=== PATIENT | female | born 1935 | race Caucasian/White ===

== ENCOUNTER 2017-09-24 15:46 | Inpatient (IN) | payer MEDICARE ==
[~2017-09-24] VITALS: Ht 177.8 cm; Wt 77.6 kg
[2017-09-24] MEDS ORDERED: IV NS 0.9% 1,000 ML BAG IV ONE ×2 (16:30→19:30)
[2017-09-24] MEDS ORDERED: VANCOMYCIN 1 GM in IV D5W 250 ML IV ONE (16:30)
[2017-09-24] MEDS ORDERED: PIPERACILLIN /TAZOBACTAM 3.375 G in IV D5W 50 ML IV ONE (16:30)
--- NOTE | 2017-09-24 16:34 | NUR ---
PT BIBRA FROM [facility] FOR AMS. NOTED TACHY, FEBRILE. NOTED DD ON LEFT LEG OPEN WOUND. MD AT FOR EVAL. IV ACCESS SMELLER. PACER PADS PLACED PER MD ORDER. SAFETY AND COMFORT MEASURES PROVIDED. WILL MONITOR.
[2017-09-24 16:46] LABS: EOSINOPHILS % (AUTO) 0.1 % (0.0-6.0); HEMATOCRIT 32 % (33-45); HEMOGLOBIN 10.9 g/dL (11.5-14.8); LYMPHOCYTES # (AUTO) 0.3 /CMM (0.8-4.8); LYMPHOCYTES % (AUTO) 3.3 % (20.0-44.0); MEAN CORPUSCULAR HEMOGLOBIN 29 PG (26.0-33.0); MEAN CORPUSCULAR HGB CONC 34 g/dl (31.0-36.0); MEAN CORPUSCULAR VOLUME 85 fL (82-100); MONOCYTES # (AUTO) 0.2 /CMM (0.1-1.30); MONOCYTES % (AUTO) 1.7 % (2.0-12.0); NEUTROPHILS # (AUTO) 9.4 /CMM (1.8-8.9); NEUTROPHILS % (AUTO) 94.9 % (43.0-81.0); PLATELET COUNT (AUTO) 66 /CMM (150-450); RDW COEFFICIENT OF VARIATION 16.7 (11.5-15.0); RED BLOOD CELL COUNT(AUTO) 3.76 MIL/uL (4.0-5.2); WHITE BLOOD COUNT (AUTO) 9.9 K/uL (4.3-11.0)
[2017-09-24] MEDS ORDERED: NITR100C6 PO (16:47)
[2017-09-24] MEDS ORDERED: CRANBERRY 1680 MG PO (16:47)
[2017-09-24] MEDS ORDERED: WARF1TAB47 PO (16:47)
[2017-09-24 17:00] LABS: TROPONIN I 0.361 ng/mL (0.00-0.056)
--- NOTE | 2017-09-24 17:00 | NUR ---
SECOND IV ACCESS STARED. BLOOD DRAWN FOR LABS. MEDICATED ORDERED.
[2017-09-24] MEDS ORDERED: MAGN400O6 PO (17:03)
[2017-09-24] MEDS ORDERED: ACET325T53 PO (17:03)
[2017-09-24] MEDS ORDERED: TRAM50TA2 PO ×2 (17:03)
[2017-09-24] MEDS ORDERED: FURO-144 PO (17:03)
[2017-09-24] MEDS ORDERED: NA P133E RC (17:03)
[2017-09-24] MEDS ORDERED: FAMO-131 PO (17:03)
[2017-09-24] MEDS ORDERED: ZINC220C6 PO (17:03)
[2017-09-24] MEDS ORDERED: BISA10SU61 RC (17:03)
[2017-09-24] MEDS ORDERED: MULT-213 PO (17:03)
[2017-09-24] MEDS ORDERED: ASCO500T9 PO (17:03)
[2017-09-24] MEDS ORDERED: HYDR-552 PO ×2 (17:03)
[2017-09-24 17:04] LABS: ALANINE AMINOTRANSFERASE 20 U/L (12-78); ALKALINE PHOSPHATASE 73 U/L (46-116); ASPARTATE AMINOTRANSFERASE 29 U/L (15-37); BILIRUBIN,DIRECT 1.3 mg/dL (0.0-0.2); BILIRUBIN,TOTAL 2.1 mg/dL (0.2-1.0); CALCIUM, SERUM 7.9 mg/dL (8.5-10.1); CARBON DIOXIDE 20 mmol/L (21-32); CHLORIDE 104 mmol/L (98-107); CREATININE 2.2 mg/dL (0.6-1.3); GLUCOSE 94 mg/dL (74-106); POTASSIUM 5.4 mmol/L (3.5-5.1); SODIUM SERUM 137 mmol/L (136-145); TOTAL PROTEIN, SERUM 4.9 g/dL (6.4-8.2); UREA NITROGEN, BLOOD 79 mg/dL (7-18)
[2017-09-24] MEDS ORDERED: AMIN30LI2 PO (17:11)
[2017-09-24 17:17] LABS: ALBUMIN 1.3 g/dL (3.4-5.0)
[2017-09-24 17:18] LABS: INR 4.23 (0.87-1.13)
[2017-09-24] MEDS ORDERED: DIGOXIN INJ 0.5 MG/2 ML AMPUL ONE (17:27)
[2017-09-24] MEDS ORDERED: DIGOXIN INJ 0.5 MG/2 ML AMPUL IV ONE (17:30)
[2017-09-24 17:31] LABS: APPEARANCE,URINE CLOUDY (CLEAR); BILIRUBIN,URINE NEGATIVE (NEGATIVE); BLOOD, URINE 3+ Ery/uL (NEGATIVE); COLOR,URINE YELLOW (YELLOW); KETONES,URINE NEGATIVE (NEGATIVE); LEUKOCYTE ESTERASE ,URINE 3+ (NEGATIVE); NITRITE, URINE NEGATIVE (NEGATIVE); PH,URINE 6.5 (5.0-8.0); PROTEIN,URINE 2+ mg/dl (NEGATIVE); UGLUCOSE NEGATIVE (NEGATIVE); UROBILINOGEN,URINE 0.2 EU/dL (0.2)
--- NOTE | 2017-09-24 17:40 | NUR ---
URINE SAMPLE OBTAINED, SENT.
[2017-09-24 17:42] LABS: BACTERIA,URINE Many /HPF (None Seen); SQUAMOUS EPITHELIAL CELL,UR Few /HPF (None Seen)
--- NOTE | 2017-09-24 18:20 | NUR ---
POCKET OPERATOR AT FOR LACTIC DRAW.
--- NOTE | 2017-09-24 19:06 | NUR ---
RECEIVED REPORT FROM VANE BLANCHARD.
--- NOTE | 2017-09-24 19:19 | NUR ---
INFORMED DR. SHEPHERD PT CURRENT BP, VERBAL ORDERS TO GIVE PT IV 1 L NS BOLUS AT THIS TIME.
--- NOTE | 2017-09-24 19:33 | NUR ---
PT BP 69/[address] SHEPHERD MADE AWARE.
--- NOTE | 2017-09-24 19:55 | NUR ---
CALLED RT FOR INTUBATION
--- NOTE | 2017-09-24 19:57 | NUR ---
CALLED FOR ICU BED
[2017-09-24] MEDS ORDERED: FENTANYL CITRATE IV 1,250 MCG in IV NS 0.9% 225 ML IV STA (19:59)
[2017-09-24] MEDS ORDERED: KETAMINE HCL (500MG/10ML) 50 MG/ML VIAL IV ONE (20:00)
[2017-09-24] MEDS ORDERED: SUCCINYLCHOLINE CHLORIDE 20 MG/ML VIAL IV ONE (20:00)
[2017-09-24] MEDS ORDERED: KETAMINE HCL (500MG/10ML) 50 MG/ML VIAL ONE (20:03)
--- NOTE | 2017-09-24 20:08 | NUR ---
ICU 253 NURSE ALEXANDRE
--- NOTE | 2017-09-24 20:15 | NUR ---
PATIENT RECEIVED ON NASAL CANNULA @ 4LPM. PATIENT ALTERED. PATIENT ORALLY INTUBATED WITH 7.5 @ 23CM LIP LINE VIA ET TUBE PER MD REQUEST. B/S CLEAR BILATERALLY. VENT PLUGGED INTO RED OUTLET. ALARMS ON AND AUDIBLE. AMBU BAG BEDSIDE. WILL CONTINUE TO MONITOR. Addendum: 09/24/17 at 2121 by HUYEN MONTIEL RT Amended: Links added.
--- NOTE | 2017-09-24 20:15 | NUR ---
DR SHEPHERD AND RT AT BEDSIDE FOR INTUBATION.
--- NOTE | 2017-09-24 20:17 | NUR ---
PT INTUBATED 23 AT [facility], ET TUBE 7.5 PT PLACED ON PRESCRIBED VENT SETTINGS: AC 16 TV 500 PEEP 5 FI02 30%
--- NOTE | 2017-09-24 20:19 | NUR ---
PER DR. SHEPHERD PT SHOCKED AT 150J PT AFIB 135
[2017-09-24] MEDS ORDERED: ETOMIDATE 2 MG/ML VIAL IV ONE (20:30)
[2017-09-24 20:40] LABS: ABG PCO2 35.3 mmHg (35.0-45.0); ABG PH 7.347 (7.350-7.450); AaDO2 170.7 mmHg; COHb 0.3 % (0.5-1.5); MetHb 1.1 % (0.0-1.5); O2Hb 97.6 % (94.0-97.0); PEEP,BG 5 cm H2O; SITE, ABG Right Radial; VENT MODE, BG AC 100%; VT, ABG 500 mL
--- NOTE | 2017-09-24 20:40 | NUR ---
F/C 16 FR PLACED PER MD ORDER.
--- NOTE | 2017-09-24 20:42 | NUR ---
OGT PLACED PER MD ORDER 65CM AT THE LIP.
--- NOTE | 2017-09-24 20:45 | NUR ---
RADIOLOGY AT BEDSIDE FOR CXR
--- NOTE | 2017-09-24 20:48 | NUR ---
DR. SHEPHERD AT BEDSIDE FOR CENTRAL LINE PLACEMENT
--- NOTE | 2017-09-24 20:55 | NUR ---
PT NOT READY FOR CT SCAN, BEING WORKED ON. ER WILL CALL.
[2017-09-24] MEDS ORDERED: FENTANYL PF 100MCG/2ML AMPUL ONE (20:58)
--- NOTE | 2017-09-24 21:03 | NUR ---
called pharmacy for levophed
--- NOTE | 2017-09-24 21:03 | NUR ---
VERBAL ORDERS PER MD IVP 50MCG FENTNYL ONE TIME NOW. PT MEDICATED.
[2017-09-24 21:12] VITALS: BP 105/72
--- NOTE | 2017-09-24 21:15 | NUR ---
PER JOAO PLACED RIGHT IJ CENTRAL LINE TRIPLE LUMEN
--- NOTE | 2017-09-24 21:23 | NUR ---
LEVOPHED GIVEN PER MD ORDER, RECEIVED DOUBLE CONCENTRATION BAG FROM PHARM. VERIFIED BY 2ND RN TRICE
[2017-09-24] MEDS ORDERED: NOREPINEPHRINE 8 MG in IV D5W 500 ML IV PRN ×4 (21:30)
[2017-09-24] MEDS ORDERED: FENTANYL PF 100MCG/2ML AMPUL IV ONE (21:30)
--- NOTE | 2017-09-24 21:47 | NUR ---
RADIOLOGY AT BEDSIDE FOR CXR
--- NOTE | 2017-09-24 21:47 | NUR ---
ATTEMPTED TO CALL [facility] AT REGARDING ADMISSION. NO ANSWER, I LEFT VOICEMAIL WITH CALL BACK NUMBER
--- NOTE | 2017-09-24 21:55 | NUR ---
REPORT GIVEN TO VANE SCHROEDER FOR ICU FOR 253
--- NOTE | 2017-09-24 22:50 | NUR ---
PT TRANSFERRED PER ACLS PROTOCOL.
[2017-09-24 23:00] VITALS: BP 98/51
[2017-09-24 23:11] VITALS: BP 103/38
[2017-09-24 23:15] VITALS: BP 98/51
[2017-09-24] MEDS ORDERED: PIPERACILLIN /TAZOBACTAM 3.375 G in IV D5W 100 ML IV ONE (23:45)
--- NOTE | 2017-09-24 23:55 | NUR ---
SLIDE FORMING MACHINE OPERATOR NOTES Received patient from ER who presented from SNF due to AMS and elevated HR. Admitting Dx Sepsis,possible UTI,AFIB with RVR. Hx of HTN,leg wounds, DVT.Intubated in ER on AC mode,lethargic,+ cough and gag,slightly moves extremities but weak,(on bilateral soft wrist restraints to prevent self extubation).On Fentanyl drip started in ER ,will slowly wean it down and start on Propofol drip.TLC right IJ also on Levophed drip for BP support. OGT clamped @ 64cm marking.Has multiple leg wounds(refer to skin flowsheet).Comfort care done,needs attended.
[2017-09-25] VITALS (90 sets, daily range): BP systolic 86–146; BP diastolic 47–107
[2017-09-25] MEDS ORDERED: IPRATROPIUM NEB FS 0.5 MG/2.5 ML AMPUL.NEB NEB PRN
[2017-09-25] MEDS ORDERED: LEVALBUTEROL HCL NEB 1.25 MG/0.5 ML VIAL.NEB NEB PRN
[2017-09-25] MEDS ORDERED: ACETAMINOPHEN 650 MG/SUPP.RECT RC PRN
[2017-09-25] MEDS: IV NS 0.9% 1,000 ML IV PRN ×3 (00:01→13:26)
[2017-09-25] MEDS ORDERED: PIPERACILLIN /TAZOBACTAM 3.375 G VIAL IV ONE ×2 (00:14→05:13)
[2017-09-25] MEDS: PANTOPRAZOLE 40 MG VIAL IV SCH ×2 (00:16→23:40)
[2017-09-25] MEDS: PROPOFOL 100 ML IV PRN ×5 (00:29→23:40)
--- NOTE | 2017-09-25 00:45 | NUR ---
PVC MONITOR NOTES Noted hR increasing on and off to 150's-160's then converts down to low 100's. 0115 HR up to 150's again ,this time sustaining . 0120 HR still in the 150's,placed a call to 's service to refer HR.will closely monitor patient .
--- NOTE | 2017-09-25 02:15 | NUR ---
CREDIT VERIFICATION CLERK NOTES 0215 called back,referred about the HR earlier,ordered to give another NSS iv bolus 1 liter.and if HR still high may start patient on Metoprolol 25 mg BID via NGT,but try IV bolus first.
[2017-09-25] MEDS ORDERED: IV NS 0.9% 1,000 ML IV ONE (02:30)
--- NOTE | 2017-09-25 03:00 | NUR ---
WEB DEVELOPMENT INTERN NOTES Heart rate in the low 100's ,still occasionally goes up to 150's but non sustaining. Patient seems to be waking up more,will titrate Diprivan as needed.
[2017-09-25] MEDS ORDERED: PIPERACILLIN /TAZOBACTAM 3.375 G in IV D5W 100 ML IV SCH (05:00)
--- NOTE | 2017-09-25 05:00 | NUR ---
CONTROL PANEL TESTER NOTES Am care done,BM x1 foul smelly.
[2017-09-25 05:26] LABS: EOSINOPHILS % (AUTO) 0.1 % (0.0-6.0); HEMATOCRIT 31 % (33-45); HEMOGLOBIN 10.3 g/dL (11.5-14.8); LYMPHOCYTES # (AUTO) 0.6 /CMM (0.8-4.8); LYMPHOCYTES % (AUTO) 5.3 % (20.0-44.0); MEAN CORPUSCULAR HEMOGLOBIN 30 PG (26.0-33.0); MEAN CORPUSCULAR HGB CONC 34 g/dl (31.0-36.0); MEAN CORPUSCULAR VOLUME 89 fL (82-100); MONOCYTES # (AUTO) 0.2 /CMM (0.1-1.30); MONOCYTES % (AUTO) 1.7 % (2.0-12.0); NEUTROPHILS # (AUTO) 10.8 /CMM (1.8-8.9); NEUTROPHILS % (AUTO) 92.9 % (43.0-81.0); RDW COEFFICIENT OF VARIATION 17.9 (11.5-15.0); RED BLOOD CELL COUNT(AUTO) 3.44 MIL/uL (4.0-5.2); WHITE BLOOD COUNT (AUTO) 11.6 K/uL (4.3-11.0)
[2017-09-25 05:48] LABS: INR 4.95 (0.87-1.13)
[2017-09-25 05:49] LABS: PLATELET COUNT (AUTO) 43 /CMM (150-450)
[2017-09-25 05:50] LABS: ALANINE AMINOTRANSFERASE 23 U/L (12-78); ALKALINE PHOSPHATASE 72 U/L (46-116); ASPARTATE AMINOTRANSFERASE 45 U/L (15-37); BILIRUBIN,TOTAL 3.5 mg/dL (0.2-1.0); CALCIUM, SERUM 7.6 mg/dL (8.5-10.1); CARBON DIOXIDE 18 mmol/L (21-32); CHLORIDE 105 mmol/L (98-107); CREATININE 1.7 mg/dL (0.6-1.3); GLUCOSE 144 mg/dL (74-106); POTASSIUM 4.7 mmol/L (3.5-5.1); SODIUM SERUM 137 mmol/L (136-145); TOTAL PROTEIN, SERUM 4.9 g/dL (6.4-8.2); UREA NITROGEN, BLOOD 69 mg/dL (7-18)
[2017-09-25 05:58] LABS: BAND % (MANUAL) 3 % (0.0-5.0); NEUTROPHILS % (MANUAL) 92 (42-76)
[2017-09-25 05:59] LABS: LYMPHOCYTES % (MANUAL) 3 % (16-48); MONOCYTES % (MANUAL) 2 % (0-11.0)
[2017-09-25 06:02] LABS: ALBUMIN 1.4 g/dL (3.4-5.0)
--- NOTE | 2017-09-25 06:30 | NUR ---
PROPAGATOR LABORER NOTES platelet=43,INR=4.95,Lactic acid=2.3,Albumin=1.4 ,relayed results to Dr. Levy via text mesage.No S/S of any bleeding.Also wound consult ordered.
[2017-09-25] MEDS ORDERED: ALBUTEROL FS 2.5 MG/0.5 ML VIAL.NEB NEB PRN (07:35)
--- NOTE | 2017-09-25 08:00 | NUR ---
ICU/RN INITIAL NOTES,AM RECEIVED REPORT FROM NIGHT NURSE. PT SEDATED ON DIPRIVAN. PT INTUBATED ETT 7.5, 24CM AT THE LIP, ON VENT SETTINGS ORDERED BY MD, PT AGITATED, BITING DOWN ON VENT, TACHYPNEIC. PER MD WILL INCREASE SEDATION PER PROTOCOL. RIGHT IJ TLC, LEVO INFUSING FOR BP SUPPORT, IV FLUIDS INFUSING 100 ML/HR. OG TUBE IN PLACE, PLACEMENT VERIFIED. PT ON TELE, UNCONTROLLED A.FIB. WITH RECURRENT EPISODES OF HR INCREASING TO 150'S, NOT SUSTAINED. BILATERAL SOFT WRIST RESTRAINTS IN PLACE, WILL ASSESS PER PROTOCOL. WOUNDS NOTED, WOUND CONSULT IN PLACE. ALL NEEDS WILL BE ATTENDED TO, SAFETY MEASURES TAKEN ,BED IN LOW POSITION, SIDE RIALS UP, CALL LIGHT WITHIN REACH, WILL CONTINUE CARE.
[2017-09-25 08:10] LABS: ABG BASE EXCESS -5.5 mmol/L; ABG OXYGEN SATURATION 96.5 % (92.0-98.5); ABG PCO2 30.9 mmHg (35.0-45.0); ABG PH 7.394 (7.350-7.450); ABG PO2 93.9 mmHg (75.0-100.0); AaDO2 83.7 mmHg; COHb 0.3 % (0.5-1.5); MetHb 0.7 % (0.0-1.5); O2Hb 95.5 % (94.0-97.0); PEEP,BG 5 cm H2O; SITE, ABG Right Radial; VENT MODE, BG AC 16 450 30% +5; VT, ABG 450 mL
[2017-09-25] MEDS: NOREPINEPHRINE 8 MG in IV D5W 500 ML IV PRN ×2 (08:45→21:43)
--- NOTE | 2017-09-25 09:10 | NUR ---
ICU/RN: ROUNDS DR. PANTOJA AT BEDSIDE. PT ASSESSED, INFORMED HIM OF UNCONTROLLED A.FIB AND CRITICAL PLATELET COUNT. ALSO INFORMED HIM PT INR IS 4.9. RECEIVED NEW ORDERS. WILL FOLLOW THROUGH
[2017-09-25] MEDS ORDERED: PHYTONADIONE INJ 10 MG/1 ML AMPUL SQ ONE (09:30)
[2017-09-25] MEDS: DIGOXIN INJ 0.5 MG/2 ML AMPUL IV SCH (10:19)
[2017-09-25] MEDS ORDERED: FEE PK DOSING 1 MIN EA MC ONE (10:27)
[2017-09-25] MEDS ORDERED: ETOMIDATE 2 MG/ML VIAL IV ONE (11:42)
[2017-09-25] MEDS ORDERED: SUCCINYLCHOLINE CHLORIDE 20 MG/ML VIAL IV ONE (11:42)
[2017-09-25] MEDS: PIPERACILLIN /TAZOBACTAM 3.375 G in IV NS 0.9% 50 ML IV SCH ×3 (12:34→23:40)
--- NOTE | 2017-09-25 12:40 | NUR ---
ICU/RN: POSITIVE DVT WITHIN THE LEFT LOWER EXTREMITY EXTENDING FROM THE LEFT COMMON FEMORAL VEIN THROUGH THE LEFT POPLITEAL VEIN. RECEIVED REPORT FROM . WILL CALL AND INFORM HIM OF NEW FINDINGS.
--- NOTE | 2017-09-25 13:15 | NUR ---
ICU/RN: INFORMED , NO NEW ORDERS FOR DVT SINCE INR IS 4.9, WILL FOLLOW UP
--- NOTE | 2017-09-25 16:30 | NUR ---
ICU/RN: TLO ORDERS RECEIVED FOR PROCEDURE CONSENT FOR IVC FILTER PLACEMENT TOMORROW 09/26/17. PT WILL CONTINUE TO BE NPO POST MIDNIGHT. PT HAS NO FAMILY, 2 PHYSICIANS WILL SIGN PROCEDURE CONSENT. WILL FOLLOW UP WITH IN THE AM.
[2017-09-25] MEDS: VANCOMYCIN 0.75 GM in IV D5W 250 ML IV SCH (18:15)
--- NOTE | 2017-09-25 18:42 | NUR ---
ICU/RN ENDING NOTES,AM REPORT WILL BE ENDORSED TO NIGHT NURSE FOR CONTINUATION OF CARE. PT INTUBATED, ON VENT SETTINGS ORDERED BY MD. NO ACUTE DISTRESS NOTED AT THIS TIME. PT SEDATED ON 50 MCG.KG/MIN OF DIPRIVAN. IV FLUIDS AND LEVO INFUSING FOR BP SUPPORT. PT UNCONTROLLED A.FIB ON TELE, WITH PERIODS OF RVR. PT BATHE, LINENS CHANGED, TURNED AND REPOSITIONED. CONSENT IN CHART FOR IVC FILTER PLACEMENT TOMORROW. AND AWARE OF RECTAL BLEEDING, WILL RECHECK H/H. ALL NEEDS ATTENDED TO, SAFETY MEASURES TAKEN, BED IN LOW POSITION, SIDE RAILS UP, CALL LIGHT WITHIN REACH. WILL CONTINUE CARE.
--- NOTE | 2017-09-25 19:35 | NUR ---
O AND M SUPERVISOR RCD PT SEDATED ON DIPRIVAN AT 50 MCG/KG/MIN WELL BILATERAL SOFT WRIST RESTRAINTS PT EASILY WAKES UP WHEN TITRATING DIPRIVAN. UNCONTROLLED AFIB ON MONITOR. ON LEVOPHED AT 14 MCG/MIN FOR BP SUPPORT. INTUBATED 7.5@ 24 W/VENT SETTINGS AC 16 450 30%; SUCTIONED LARGE BROWN SPUTUM; PROVIDED ORAL CARE; REPOSITIONED PT. MARTINEZ CATHETER DRAINING LARGE AMOUNT OF DARK YELLOW URINE. OG TUBE CLAMPED. RIJ TLC PATENT AND FLUSHING WELL. PENDING IVC FILTER PLACEMENT FOR TOMORROW. CONTINUE TO MONITOR.
[2017-09-25 20:47] LABS: EOSINOPHILS % (AUTO) 0.1 % (0.0-6.0); HEMATOCRIT 30 % (33-45); HEMOGLOBIN 10.5 g/dL (11.5-14.8); LYMPHOCYTES # (AUTO) 0.6 /CMM (0.8-4.8); LYMPHOCYTES % (AUTO) 5.9 % (20.0-44.0); MEAN CORPUSCULAR HEMOGLOBIN 32 PG (26.0-33.0); MEAN CORPUSCULAR HGB CONC 35 g/dl (31.0-36.0); MEAN CORPUSCULAR VOLUME 93 fL (82-100); MONOCYTES # (AUTO) 0.1 /CMM (0.1-1.30); MONOCYTES % (AUTO) 0.7 % (2.0-12.0); NEUTROPHILS # (AUTO) 9.7 /CMM (1.8-8.9); NEUTROPHILS % (AUTO) 93.3 % (43.0-81.0); RDW COEFFICIENT OF VARIATION 17.8 (11.5-15.0); RED BLOOD CELL COUNT(AUTO) 3.26 MIL/uL (4.0-5.2); WHITE BLOOD COUNT (AUTO) 10.4 K/uL (4.3-11.0)
[2017-09-25 20:49] LABS: PLATELET COUNT (AUTO) 29 /CMM (150-450)
[2017-09-25 21:22] LABS: BAND % (MANUAL) 24 % (0.0-5.0); LYMPHOCYTES % (MANUAL) 8 % (16-48); MONOCYTES % (MANUAL) 3 % (0-11.0); NEUTROPHILS % (MANUAL) 65 (42-76)
--- NOTE | 2017-09-25 21:49 | NUR ---
PT RECEIVED INTUBATED WITH 7.5 ETT SECURED AT 24CM AT THE LIP ON 840 VENT. NO RESP DISTRESS NOTED. PT TOLERATING VENT SETTINGS. SX'D FOR SML AMT OF THIN WHITE SECRETIONS. VENT ALARMS SET AND AUDIBLE. AMBU BAG AT BEDSIDE. VENT PLUGGED INTO RED OUTLET. WILL CONTINUE TO MONITOR. Addendum: 09/25/17 at 2150 by RC BETANCOURT RT Amended: Links added.
[2017-09-26] VITALS (90 sets, daily range): BP systolic 80–128; BP diastolic 45–73
[2017-09-26] MEDS: PROPOFOL 100 ML IV PRN ×4 (02:40→22:20)
[2017-09-26 04:58] LABS: INR 1.1 (0.87-1.13)
[2017-09-26] MEDS: PIPERACILLIN /TAZOBACTAM 3.375 G in IV NS 0.9% 50 ML IV SCH (05:01)
[2017-09-26] MEDS: IV NS 0.9% 1,000 ML IV PRN ×2 (05:01→18:37)
[2017-09-26 05:07] LABS: EOSINOPHILS % (AUTO) 0.2 % (0.0-6.0); HEMATOCRIT 29 % (33-45); HEMOGLOBIN 10.2 g/dL (11.5-14.8); LYMPHOCYTES # (AUTO) 0.4 /CMM (0.8-4.8); LYMPHOCYTES % (AUTO) 4.3 % (20.0-44.0); MEAN CORPUSCULAR HEMOGLOBIN 32 PG (26.0-33.0); MEAN CORPUSCULAR HGB CONC 35 g/dl (31.0-36.0); MEAN CORPUSCULAR VOLUME 91 fL (82-100); MONOCYTES # (AUTO) 0.1 /CMM (0.1-1.30); MONOCYTES % (AUTO) 1.2 % (2.0-12.0); NEUTROPHILS # (AUTO) 9.5 /CMM (1.8-8.9); NEUTROPHILS % (AUTO) 94.3 % (43.0-81.0); RDW COEFFICIENT OF VARIATION 17.8 (11.5-15.0); RED BLOOD CELL COUNT(AUTO) 3.23 MIL/uL (4.0-5.2); WHITE BLOOD COUNT (AUTO) 10.1 K/uL (4.3-11.0)
[2017-09-26 05:12] LABS: ALANINE AMINOTRANSFERASE 18 U/L (12-78); ALKALINE PHOSPHATASE 70 U/L (46-116); ASPARTATE AMINOTRANSFERASE 33 U/L (15-37); BILIRUBIN,TOTAL 3.7 mg/dL (0.2-1.0); CALCIUM, SERUM 7.8 mg/dL (8.5-10.1); CARBON DIOXIDE 20 mmol/L (21-32); CHLORIDE 107 mmol/L (98-107); CREATININE 1.3 mg/dL (0.6-1.3); GLUCOSE 162 mg/dL (74-106); POTASSIUM 4.1 mmol/L (3.5-5.1); SODIUM SERUM 140 mmol/L (136-145); TOTAL PROTEIN, SERUM 4.7 g/dL (6.4-8.2); UREA NITROGEN, BLOOD 61 mg/dL (7-18)
[2017-09-26 05:34] LABS: ALBUMIN 1.1 g/dL (3.4-5.0)
[2017-09-26 05:44] LABS: PLATELET COUNT (AUTO) 28 /CMM (150-450)
[2017-09-26 05:46] LABS: LYMPHOCYTES % (MANUAL) 2 % (16-48); MONOCYTES % (MANUAL) 1 % (0-11.0); NEUTROPHILS % (MANUAL) 97 (42-76)
--- NOTE | 2017-09-26 07:18 | NUR ---
ICU/RN INITIAL NOTES,AM RECEIVED REPORT FROM NIGHT NURSE. PT SEDATED ON DIPRIVAN. PT INTUBATED ETT 7.5, 24CM AT THE LIP, ON VENT SETTINGS ORDERED BY MD, PT AGITATED, BITING DOWN ON VENT, TACHYPNEIC. PER MD WILL INCREASE SEDATION PER PROTOCOL.RIGHT IJ TLC, LEVO INFUSING FOR BP SUPPORT, IV FLUIDS INFUSING 100 ML/HR. OG TUBE IN PLACE, PLACEMENT VERIFIED. PT ON TELE, UNCONTROLLED A.FIB. WITH RECURRENT EPISODES OF HR INCREASING TO 150'S, NOT SUSTAINED. BILATERAL SOFT WRIST RESTRAINTS IN PLACE, WILL ASSESS PER PROTOCOL. WOUNDS NOTED, WOUND CONSULT IN PLACE. ALL NEEDS WILL BE ATTENDED TO, SAFETY MEASURES TAKEN ,BED IN LOW POSITION, SIDE RIALS UP, CALL LIGHT WITHIN REACH, WILL CONTINUE CARE.
--- NOTE | 2017-09-26 07:19 | NUR ---
ICU/RN INITIAL NOTES,AM (REVISED, DISREGARD PERVIOUS INITIAL NOTED ) RECEIVED REPORT FROM NIGHT NURSE. PT SEDATED ON DIPRIVAN. PT INTUBATED ETT 7.5, 24CM AT THE LIP, ON VENT SETTINGS ORDERED. PT SEDATED ON DIPRIVAN, 50 MCG/KG/MIN RIGHT IJ TLC, LEVO INFUSING FOR BP SUPPORT, IV FLUIDS INFUSING 100 ML/HR. OG TUBE IN PLACE, PLACEMENT VERIFIED. PT ON TELE, UNCONTROLLED A.FIB. BILATERAL SOFT WRIST RESTRAINTS IN PLACE, WILL ASSESS PER PROTOCOL. WOUNDS NOTED, SKIN/WOUND CARE ORDERED. PT SCHEDULED FOR IVC FILTER PLACEMENT TODAY. MARTINEZ IN PLACE, DRAINING JEAN CLAUDE URINE. ALL NEEDS WILL BE ATTENDED TO, SAFETY MEASURES TAKEN ,BED IN LOW POSITION, SIDE RIALS UP, CALL LIGHT WITHIN REACH, WILL CONTINUE CARE.
--- NOTE | 2017-09-26 07:36 | NUR ---
WOUND CARE CONSULT WOUND CARE RECEIVED CONSULT FOR MULTIPLE WOUND/LEFT LOWER LEG LARGE FULL THICKNESS WOUND. WOUND CARE WILL DEFER CONSULT AND ALL TREATMENT PLANS TO SURGICAL TEAM WHO ARE CURRENTLY FOLLOWING. PATIENT WITH HANNAH AT 10, ALL PRESSURE ULCER PREVENTION MEASURES NOTED TO BE IN PLACE AT THIS TIME.
[2017-09-26 07:43] LABS: ABG BASE EXCESS -4.7 mmol/L; ABG OXYGEN SATURATION 99.2 % (92.0-98.5); ABG PCO2 29.3 mmHg (35.0-45.0); ABG PH 7.424 (7.350-7.450); AaDO2 59.5 mmHg; COHb 3.2 % (0.5-1.5); MetHb 0.1 % (0.0-1.5); O2Hb 95.9 % (94.0-97.0); PEEP,BG 0 cm H2O; SITE, ABG Right Radial; VENT MODE, BG AC 16 450 30% +0; VT, ABG 450 mL
[2017-09-26] MEDS ORDERED: Z GUARD REMEDY 2 OZ OINT TP PRN (08:00)
[2017-09-26] MEDS: DIGOXIN INJ 0.5 MG/2 ML AMPUL IV SCH (09:05)
[2017-09-26] MEDS: NOREPINEPHRINE 8 MG in IV D5W 500 ML IV PRN ×2 (09:06→18:36)
[2017-09-26] MEDS: Z GUARD REMEDY 2 OZ OINT TP SCH (09:06)
[2017-09-26] MEDS ORDERED: MEROPENEM 1 G in IV NS 0.9% 100 ML IV SCH (11:00)
[2017-09-26] MEDS: DAKINS HALF STRENGTH (0.25%) 480 ML BOTTLE TOP SCH (11:56)
[2017-09-26] MEDS: MEROPENEM 1 G in IV NS 0.9% 100 ML IV SCH (12:09)
--- NOTE | 2017-09-26 12:30 | NUR ---
Social service consult requested by Dr. Levy regarding if pt. has DPOA or no. patient services manager Oren contacted Janett Glass and was informed by Juan that pt. has a friend Dereje as her primary contact . contacted Dereje to inquire if pt. has a DPOA. According to Dereje, pt. does not have a DPOA. Pt. has a lot of friends she has had for the past 30 years. Pt's mom when she was young and her sister and father are as well.
[2017-09-26] MEDS ORDERED: LEVOFLOXACIN 500 MG /D5W 100ML 500 MG in PREMIX 1 EA IV SCH ×2 (13:00→20:00)
--- NOTE | 2017-09-26 15:55 | NUR ---
ICU/RN: PLATELET PHERESIS STARTED. CONSENT IN CHART. NO S/S OF ADVERSE REACTIONS NOTED. WILL CONTINUE TO CLOSELY MONITOR.
[2017-09-26] MEDS ORDERED: LIDOCAINE 1% INJ 50 ML MDV IJ ONE (16:55)
[2017-09-26] MEDS ORDERED: HEPARIN SODIUM, PORCINE 1,000 UNIT/ML VIAL ONE (16:55)
[2017-09-26] MEDS ORDERED: IOHEXOL 50 ML IV ONE (16:55)
--- NOTE | 2017-09-26 17:10 | NUR ---
ICU/RN: SECOND PLATELET STARTED AT 1700, OR TEAM PICKED UP PT. TOLERATING WELL, NO S/S OF ADVERSE REACTIONS. PT TAKEN TO OR FOR IVC FILTER PLACEMENT.
[2017-09-26] MEDS ORDERED: FENTANYL PF 100MCG/2ML AMPUL ONE (17:17)
[2017-09-26] MEDS ORDERED: ROCURONIUM BROMIDE 50 MG/5 ML ONE (17:19)
--- NOTE | 2017-09-26 18:01 | NUR ---
ICU/RN: PT BROUGHT BACK TO ROOM FROM OR. IVC PLACEMENT DONE. PT VSS. CONTINUES TO BE ON 10 MCG/KG/MIN LEVO FOR BP SUPPORT, DIPRIVAN INFUSING FOR SEDATION, AND IV FLUIDS ORDERED. SITE CHECKED, NO S/S OF BLEEDING NOTED. WILL CONTINUE TO MONITOR. SECOND PLATELET INFUSED. WILL CONTINUE TO MONITOR.
[2017-09-26] MEDS: VANCOMYCIN 0.75 GM in IV D5W 250 ML IV SCH (18:35)
--- NOTE | 2017-09-26 19:00 | NUR ---
LUMBER STACKER OPERATOR NOTES Received orally intubated,on AC mode.Sedated on Diprivan Dorita of =3 ,responds to pain,+ gag and cough,slightly moves arms,maintained on bilateral soft wrist restraints( to prevent self extubation). TLC @ RIJ ,on Levophed drip for BP support.Comfort care done.Maintained on supine position for now (s/p IVC filter,right groin approach).Will closely monitor for bleeding at site( right groin).
--- NOTE | 2017-09-26 19:25 | NUR ---
ICU/RN ENDING NOTES,AM REPORT ENDORSED TO NIGHT NURSE FOR CONTINUATION OF CARE. PT INTUBATED, ON VENT SETTINGS ORDERED BY MD. NO ACUTE DISTRESS NOTED AT THIS TIME. PT SEDATED ON 20 MCG.KG/MIN OF DIPRIVAN. IV FLUIDS AND LEVO INFUSING FOR BP SUPPORT. ON TELE SINUS WITH PVS/PACS. PT BATHE, LINENS CHANGED, TURNED AND REPOSITIONED. IVC FILTER PLACED, NO S/S OF BLEEDING NOTED, WILL CONTINUE TO MONITOR. ALL NEEDS ATTENDED TO, SAFETY MEASURES TAKEN, BED IN LOW POSITION, SIDE RAILS UP, CALL LIGHT WITHIN REACH. WILL CONTINUE CARE.
[2017-09-26] MEDS: PANTOPRAZOLE 40 MG VIAL IV SCH (22:55)
[2017-09-27] VITALS (84 sets, daily range): BP systolic 89–129; BP diastolic 53–94
--- NOTE | 2017-09-27 | NUR ---
AUDIT CONSULTANT NOTES Remains stable,comfort care done.No bleeding noted on right groin (post IVC filter site insertion).Remains sedated,responsive to deep pain .
[2017-09-27] MEDS: MEROPENEM 1 G in IV NS 0.9% 100 ML IV SCH ×3 (00:03→23:35)
--- NOTE | 2017-09-27 05:00 | NUR ---
POWER EQUIPMENT MECHANICS INSTRUCTOR NOTES am care done,placed on KCI bed,left leg woune dressing changed.
[2017-09-27 05:24] LABS: EOSINOPHILS % (AUTO) 0.1 % (0.0-6.0); HEMATOCRIT 26 % (33-45); LYMPHOCYTES # (AUTO) 0.5 /CMM (0.8-4.8); LYMPHOCYTES % (AUTO) 6.8 % (20.0-44.0); MEAN CORPUSCULAR HEMOGLOBIN 30 PG (26.0-33.0); MEAN CORPUSCULAR HGB CONC 34 g/dl (31.0-36.0); MEAN CORPUSCULAR VOLUME 88 fL (82-100); MONOCYTES # (AUTO) 0.1 /CMM (0.1-1.30); MONOCYTES % (AUTO) 1.6 % (2.0-12.0); NEUTROPHILS # (AUTO) 6.8 /CMM (1.8-8.9); NEUTROPHILS % (AUTO) 91.5 % (43.0-81.0); PLATELET COUNT (AUTO) 85 /CMM (150-450); RDW COEFFICIENT OF VARIATION 17.6 (11.5-15.0); RED BLOOD CELL COUNT(AUTO) 2.97 MIL/uL (4.0-5.2); WHITE BLOOD COUNT (AUTO) 7.4 K/uL (4.3-11.0)
[2017-09-27 05:30] LABS: CALCIUM, SERUM 7.7 mg/dL (8.5-10.1); CARBON DIOXIDE 22 mmol/L (21-32); CHLORIDE 109 mmol/L (98-107); GLUCOSE 113 mg/dL (74-106); POTASSIUM 3.4 mmol/L (3.5-5.1); SODIUM SERUM 141 mmol/L (136-145); UREA NITROGEN, BLOOD 43 mg/dL (7-18)
[2017-09-27] MEDS: IV NS 0.9% 1,000 ML IV PRN ×2 (06:46→16:02)
[2017-09-27] MEDS: PROPOFOL 100 ML IV PRN ×3 (06:46→23:42)
[2017-09-27] MEDS: DIGOXIN INJ 0.5 MG/2 ML AMPUL IV SCH (08:41)
[2017-09-27] MEDS: DAKINS HALF STRENGTH (0.25%) 480 ML BOTTLE TOP SCH (08:41)
[2017-09-27] MEDS: Z GUARD REMEDY 2 OZ OINT TP SCH (08:41)
[2017-09-27 08:56] LABS: ABG BASE EXCESS -1.9 mmol/L; ABG OXYGEN SATURATION 98.9 % (92.0-98.5); ABG PCO2 26.7 mmHg (35.0-45.0); ABG PH 7.503 (7.350-7.450); ABG PO2 108.7 mmHg (75.0-100.0); AaDO2 73.8 mmHg; COHb 3.6 % (0.5-1.5); MetHb 0.1 % (0.0-1.5); O2Hb 95.2 % (94.0-97.0); PEEP,BG 0 cm H2O; SITE, ABG Right Radial; VENT MODE, BG AC 16 / TOTAL RATE 22; VT, ABG 450 mL
--- NOTE | 2017-09-27 09:00 | NUR ---
DOCUMENT ADVISOR NOTES SEDATION VACATION @ 0900 , WILL CONTINUE TO MONITOR
--- NOTE | 2017-09-27 09:15 | NUR ---
ARCHEOLOGIST NOTES RECEIVED PATIENT SEDATED , NOT IN ACUTE DISTRESS , RESPIRATIONS EVEN AND UNLABORED , SPO2 OF 100% VIA MECHANICAL VENTILATOR SETTINGS ORDERED , ETT 7.[address] , AFIB 80 ON BEDSIDE MONITOR , OGT IN PLACE , FC DRAINING VIA GRAVITY , R IJ TLC WITH NS @ 100ML/HR , DIPRIVAN @ 20MCG/KG/MIN , LEVOPHED @ 8MCG/MIN INFUSING WELL , ALL NEEDS ATTENDED , BED ON LOW AND LOCKED POSITION , SIDE RAILS X2 HOB @ 35 , WILL CONTINUE TO MONITOR
[2017-09-27 10:11] LABS: LYMPHOCYTES % (MANUAL) 5 % (16-48); MONOCYTES % (MANUAL) 2 % (0-11.0); NEUTROPHILS % (MANUAL) 93 (42-76)
[2017-09-27] MEDS: NOREPINEPHRINE 8 MG in IV D5W 500 ML IV PRN ×2 (10:34→19:30)
--- NOTE | 2017-09-27 12:15 | NUR ---
CUSTOMER ADVOCACY MANAGER NOTES SEEN AND EVALUATED BY DR PANTOJA , DISCUSSED LABS , CHEST XRAY , OFF SEDATION AT THIS TIME , ABLE TO OPENS EYES VIA TACTILE STIMULI , DOESN'T FOLLOW COMMANDS , ON LEVOPHED @ 8MCG/MIN , AFEBRILE , NO ACTIVE BLEEDING NOTED , MD AWARE .
[2017-09-27] MEDS: POTASSIUM CL. PREMIX PERIPHER. 50 ML IV SCH ×2 (13:18→14:23)
--- NOTE | 2017-09-27 13:18 | NUR ---
SPECIAL NEEDS CHILD CAREGIVER NOTES RE STARTED DIRPIVAN @ 5MCG/KG/MIN DUE TO AFIB 130-140'S , TACHYPNEIC RR OF 30-35CPM , OPENS EYES VIA TACTILE STIMULI , UNABLE TO FOLLOW COMMANDS , NOTED WITH PURPOSEFUL MOVEMENT OF BILATERAL ARMS
[2017-09-27] MEDS: CEFAZOLIN SODIUM 1 GM in IV SODIUM CHLORIDE 0.9% 50 ML IV SCH ×2 (16:02→22:00)
[2017-09-27] MEDS: VANCOMYCIN 0.75 GM in IV D5W 250 ML IV SCH (17:32)
--- NOTE | 2017-09-27 20:00 | NUR ---
Received patient on vent support sedated on Diprivan gtt.Open eyes to tactile stimuli but not following commands.Noted purposeful movements to both arms.Bilateral soft wrist restraints in place and protocol observed.Afib 100-104.Levophed gtt infusing for BP support and will titrate accordingly.OGT clamped and placement verified.NPO status.IVF infusing.FC with kei urine.Turned and repositioned.No acute distress noted.
--- NOTE | 2017-09-27 20:16 | NUR ---
PT RECEIVED INTUBATED 7.5 ETT SECURED AT 23CM AT THE LIP. NO RESP DISTRESS NOTED. PT TOLERATING VENT SETTINGS. SX'D FOR MOD AMT OF THICK YELLOW SECRETIONS. VENT ALARMS SET AND AUDIBLE. AMBU BAG AT BEDSIDE. WILL CONTINUE TO MONITOR. Addendum: 09/27/17 at 2017 by RC BETANCOURT RT Amended: Links added.
[2017-09-27] MEDS: PANTOPRAZOLE 40 MG VIAL IV SCH (23:34)
[2017-09-28] VITALS (100 sets, daily range): BP systolic 86–125; BP diastolic 46–79
--- NOTE | 2017-09-28 | NUR ---
Patient resting.vs stable.Turned and repositioned.
[2017-09-28] MEDS: IV NS 0.9% 1,000 ML IV PRN ×2 (04:06→15:50)
[2017-09-28 05:02] LABS: BASOPHILS % (AUTO) 0.1 % (0.0-2.0); HEMATOCRIT 25 % (33-45); LYMPHOCYTES # (AUTO) 0.6 /CMM (0.8-4.8); LYMPHOCYTES % (AUTO) 6.7 % (20.0-44.0); MEAN CORPUSCULAR HEMOGLOBIN 35 PG (26.0-33.0); MEAN CORPUSCULAR HGB CONC 36 g/dl (31.0-36.0); MEAN CORPUSCULAR VOLUME 97 fL (82-100); MONOCYTES # (AUTO) 0.1 /CMM (0.1-1.30); MONOCYTES % (AUTO) 0.8 % (2.0-12.0); NEUTROPHILS # (AUTO) 8.5 /CMM (1.8-8.9); NEUTROPHILS % (AUTO) 92.4 % (43.0-81.0); PLATELET COUNT (AUTO) 65 /CMM (150-450); RDW COEFFICIENT OF VARIATION 17.9 (11.5-15.0); RED BLOOD CELL COUNT(AUTO) 2.61 MIL/uL (4.0-5.2); WHITE BLOOD COUNT (AUTO) 9.2 K/uL (4.3-11.0)
[2017-09-28 05:10] LABS: CALCIUM, SERUM 7.9 mg/dL (8.5-10.1); CARBON DIOXIDE 23 mmol/L (21-32); CHLORIDE 111 mmol/L (98-107); CREATININE 0.9 mg/dL (0.6-1.3); GLUCOSE 108 mg/dL (74-106); POTASSIUM 3.8 mmol/L (3.5-5.1); SODIUM SERUM 143 mmol/L (136-145); UREA NITROGEN, BLOOD 38 mg/dL (7-18)
[2017-09-28 05:30] LABS: BAND % (MANUAL) 5 % (0.0-5.0); LYMPHOCYTES % (MANUAL) 7 % (16-48); NEUTROPHILS % (MANUAL) 88 (42-76)
[2017-09-28] MEDS: CEFAZOLIN SODIUM 1 GM in IV SODIUM CHLORIDE 0.9% 50 ML IV SCH (06:00)
--- NOTE | 2017-09-28 06:30 | NUR ---
Patient resting.VS remains stable.Afib 99-105.Levophed,Diprivan gtt and IVF infusing well. AM care done.No significant change noted during the night.All due medications administered. Call light at bedside for safety.
--- NOTE | 2017-09-28 08:00 | NUR ---
ICU/RN INITIAL NOTES,AM RECEIVED REPORT FROM NIGHT NURSE. PT SEDATED ON DIPRIVAN 15 MCG/KG/MIN. PT INTUBATED ETT 7.5, 24CM AT THE LIP, ON VENT SETTINGS ORDERED BY MD, NO ACUTE DISTRESS NOTED AT THIS TIME. RIGHT IJ TLC, LEVO INFUSING FOR BP SUPPORT AT 4 MCG. IV FLUIDS INFUSING 100 ML/HR. OG TUBE IN PLACE, PLACEMENT VERIFIED. PT ON TELE, UNCONTROLLED A.FIB. BILATERAL SOFT WRIST RESTRAINTS IN PLACE, WILL ASSESS PER PROTOCOL. WOUNDS NOTED, WOUND CARE WILL BE RENDERED. ALL NEEDS WILL BE ATTENDED TO, SAFETY MEASURES TAKEN ,BED IN LOW POSITION, SIDE RIALS UP, CALL LIGHT WITHIN REACH, WILL CONTINUE CARE.
[2017-09-28] MEDS: DAKINS HALF STRENGTH (0.25%) 480 ML BOTTLE TOP SCH (08:32)
[2017-09-28] MEDS: Z GUARD REMEDY 2 OZ OINT TP SCH (08:33)
[2017-09-28] MEDS: DIGOXIN INJ 0.5 MG/2 ML AMPUL IV SCH (08:53)
--- NOTE | 2017-09-28 09:00 | NUR ---
ICU/RN: SEDATION VACATION PT OPENS EYES, DOES NOT FOLLOW COMMANDS. WILL CONTINUE TO MONITOR AND ASSESS.
[2017-09-28 09:01] LABS: ABG BASE EXCESS -3.5 mmol/L; ABG OXYGEN SATURATION 98.9 % (92.0-98.5); ABG PCO2 26.5 mmHg (35.0-45.0); ABG PH 7.476 (7.350-7.450); ABG PO2 114.5 mmHg (75.0-100.0); AaDO2 68.3 mmHg; COHb 3.5 % (0.5-1.5); MetHb 0.1 % (0.0-1.5); O2Hb 95.3 % (94.0-97.0); SITE, ABG Left Radial; VENT MODE, BG AC 30%; VT, ABG 450 mL
[2017-09-28] MEDS: CEFEPIME 1 GM in IV NS 0.9% 50 ML IV SCH ×2 (12:02→20:07)
[2017-09-28] MEDS: METOPROLOL TARTRATE 25 MG TABLET PO SCH ×2 (12:02→20:07)
[2017-09-28] MEDS: PROPOFOL 100 ML IV PRN (12:55)
[2017-09-28] MEDS: FIBERSOURCE HN 1,000 ML BOTTLE GT PRN (12:57)
--- NOTE | 2017-09-28 18:38 | NUR ---
ICU/RN ENDING NOTES,AM REPORT WILL BE ENDORSED TO NIGHT NURSE FOR CONTINUATION OF CARE. PT INTUBATED, ON VENT SETTINGS ORDERED BY MD. NO ACUTE DISTRESS NOTED AT THIS TIME. PT SEDATED ON 10 MCG.KG/MIN OF DIPRIVAN. IV FLUIDS AND LEVO INFUSING FOR BP SUPPORT. ON TELE, UNCONTROLLED A.FIB. PT BATHE, LINENS CHANGED, TURNED AND REPOSITIONED. ALL NEEDS ATTENDED TO, SAFETY MEASURES TAKEN, BED IN LOW POSITION, SIDE RAILS UP, CALL LIGHT WITHIN REACH. WILL CONTINUE CARE.
--- NOTE | 2017-09-28 20:01 | NUR ---
PT RECEIVED INTUBATED 7.5 ETT SECURED AT 23CM AT THE LIP. NO RESP DISTRESS NOTED. PT TOLERATING VENT SETTINGS. SX'D FOR MOD AMT OF THICK YELLOW SECRETIONS. VENT ALARMS SET AND AUDIBLE. AMBU BAG AT BEDSIDE. WILL CONTINUE TO MONITOR. Addendum: 09/28/17 at 2000 by RC BETANCOURT RT Amended: Links added.
[2017-09-28] MEDS ORDERED: ACETAMINOPHEN 325 MG TABLET PO PRN (20:30)
[2017-09-28] MEDS ORDERED: ACETAMINOPHEN 650 MG/20.3 ML UDC ONE (20:51)
[2017-09-28] MEDS ORDERED: ACETAMINOPHEN 650 MG/20.3 ML UDC NG PRN (21:00)
[2017-09-28] MEDS ORDERED: CEFAZOLIN 1 GM in IV NS 0.9% 50 ML IV SCH (21:00)
[2017-09-28] MEDS ORDERED: VANCOMYCIN 1 GM VIAL ONE (21:33)
[2017-09-28] MEDS ORDERED: VANCOMYCIN 1 GM in IV D5W 250 ML IV ONE (22:00)
[2017-09-28] MEDS: PANTOPRAZOLE 40 MG VIAL IV SCH (22:53)
[2017-09-29] VITALS (61 sets, daily range): BP systolic 88–125; BP diastolic 49–72
[2017-09-29] MEDS: PROPOFOL 100 ML IV PRN (01:39)
[2017-09-29] MEDS: IV NS 0.9% 1,000 ML IV PRN ×2 (03:40→14:34)
[2017-09-29] MEDS: CEFEPIME 1 GM in IV NS 0.9% 50 ML IV SCH ×3 (04:11→20:59)
[2017-09-29] MEDS: NOREPINEPHRINE 8 MG in IV D5W 500 ML IV PRN (04:13)
[2017-09-29 05:22] LABS: EOSINOPHILS % (AUTO) 0.2 % (0.0-6.0); HEMATOCRIT 26 % (33-45); HEMOGLOBIN 9.2 g/dL (11.5-14.8); LYMPHOCYTES # (AUTO) 0.6 /CMM (0.8-4.8); LYMPHOCYTES % (AUTO) 6.6 % (20.0-44.0); MEAN CORPUSCULAR HEMOGLOBIN 34 PG (26.0-33.0); MEAN CORPUSCULAR HGB CONC 35 g/dl (31.0-36.0); MEAN CORPUSCULAR VOLUME 95 fL (82-100); MONOCYTES % (AUTO) 0.5 % (2.0-12.0); NEUTROPHILS # (AUTO) 8.8 /CMM (1.8-8.9); NEUTROPHILS % (AUTO) 92.7 % (43.0-81.0); PLATELET COUNT (AUTO) 75 /CMM (150-450); RDW COEFFICIENT OF VARIATION 18.6 (11.5-15.0); RED BLOOD CELL COUNT(AUTO) 2.75 MIL/uL (4.0-5.2); WHITE BLOOD COUNT (AUTO) 9.4 K/uL (4.3-11.0)
[2017-09-29 05:44] LABS: CALCIUM, SERUM 7.5 mg/dL (8.5-10.1); CARBON DIOXIDE 23 mmol/L (21-32); CHLORIDE 114 mmol/L (98-107); CREATININE 0.9 mg/dL (0.6-1.3); GLUCOSE 187 mg/dL (74-106); SODIUM SERUM 144 mmol/L (136-145); UREA NITROGEN, BLOOD 37 mg/dL (7-18)
[2017-09-29 05:53] LABS: BAND % (MANUAL) 1 % (0.0-5.0); LYMPHOCYTES % (MANUAL) 8 % (16-48); NEUTROPHILS % (MANUAL) 91 (42-76)
--- NOTE | 2017-09-29 07:26 | NUR ---
Received intubated pt on mechanical vent. Pt 7.5 ETT secured at 23cm@ the lip. Vent is plugged into a red outlet, alarms are set and audible, and BVM is at bedside. Addendum: 09/29/17 at 0727 by JOVAN AMADOR RT Amended: Links added.
--- NOTE | 2017-09-29 07:30 | NUR ---
ICU/RN: Pt received, orally intubated, tolerating current vent settings. IVF and meds infusing through R IJ TLC, dressing C/D/I, good blood return noted. No residuals noted, tolerating current TF, rate increased to 55cc/hr, will reassess residual. Dressings C/D/I. Will cont to monitor pt.
[2017-09-29] MEDS: METOPROLOL TARTRATE 25 MG TABLET PO SCH ×3 (08:34→20:59)
[2017-09-29] MEDS: Z GUARD REMEDY 2 OZ OINT TP SCH (08:35)
[2017-09-29] MEDS: DIGOXIN INJ 0.5 MG/2 ML AMPUL IV SCH (08:35)
[2017-09-29] MEDS: DAKINS HALF STRENGTH (0.25%) 480 ML BOTTLE TOP SCH (08:36)
[2017-09-29 09:35] LABS: ABG BASE EXCESS -3.5 mmol/L; ABG OXYGEN SATURATION 97.5 % (92.0-98.5); ABG PCO2 29.1 mmHg (35.0-45.0); ABG PO2 93.9 mmHg (75.0-100.0); AaDO2 85.8 mmHg; COHb 3.2 % (0.5-1.5); MetHb 0.1 % (0.0-1.5); O2Hb 94.3 % (94.0-97.0); SITE, ABG Right Radial; VENT MODE, BG AC 16 650 30%
--- NOTE | 2017-09-29 09:35 | NUR ---
ICU/RN: Dr Marck reynoso; updated on pt status. Pt has been off Diprivan since 0800, remains lethargic and unable to follow commands. Per MD, "hold off the Diprivan for now." Orders prn Ativan and Morphine for pt comfort. Noted and carried out.
--- NOTE | 2017-09-29 09:45 | NUR ---
ICU/RN: Dr Cam reynoso; updated on labs, resp and neuro status. Diprivan remains off.
[2017-09-29] MEDS: HYDROMORPHONE INJ 0.5 MG/0.5 ML SYRINGE IV PRN (11:23)
[2017-09-29] MEDS: FIBERSOURCE HN 1,000 ML BOTTLE GT PRN (12:36)
[2017-09-29] MEDS: LORAZEPAM INJ 2 MG/ML VIAL IV PRN (14:34)
--- NOTE | 2017-09-29 15:00 | NUR ---
ICU/RN: Dr Rodriguez at bedside for podiatry consult, wound care reviewed and updated with MD. No new orders.
--- NOTE | 2017-09-29 17:15 | NUR ---
ICU/RN: Attempted to increase TF rate to goal of 70cc/hr, however pt has 95cc residual noted. Will cont current rate and re-assess gastric residuals at later time.
--- NOTE | 2017-09-29 20:30 | NUR ---
ICU/RN RECEIVED REPORT FROM KIMBERLY ROBLES ON VENT VIA ORAL ETT 02 SAT 98-100% ON 30% FI02.MOVES BILATERAL ARMS SPONTANEOUSLY BUT NOT TO COMMANDS.RECEIVING TF FIBERSOURCE AT 60ML/HR,SCANT RESIDUAL OBTAINED.REPOSITIONED AND TURNED.
[2017-09-29] MEDS ORDERED: VANCOMYCIN 1 GM in IV D5W 250 ML IV SCH (21:00)
[2017-09-30] VITALS (36 sets, daily range): BP systolic 106–134; BP diastolic 52–85
--- NOTE | 2017-09-30 00:05 | NUR ---
ICU/RN BILATERAL SOFT WRIST RESTRAINTS DC'D, PT BARELY MOVES ARMS,LEFT WEAKER THAN RT.
[2017-09-30] MEDS: PANTOPRAZOLE 40 MG VIAL IV SCH (00:08)
--- NOTE | 2017-09-30 02:00 | NUR ---
ICU/RN TUBE FEEDING INCREASED TO 70ML/HR PT TOLERATING 60ML/HR W/ 0-5ML RESIDUAL.MONITOR SHOWS SR TO A-FIB RATE OF 90-110'S.COMPLETE BED BATH GIVEN ,INCONTINENT OF REDDISH-BROWNISH VAGINAL DISCHARGE.WOUNDS TO RT LATERAL THIGH AND LTLATERAL PICTURED CLEANSED W/ NS,PAT DRY AND MEPILEX APPLIED.
[2017-09-30] MEDS: IV NS 0.9% 1,000 ML IV PRN ×2 (02:38→12:58)
[2017-09-30] MEDS: FIBERSOURCE HN 1,000 ML BOTTLE GT PRN (03:57)
[2017-09-30] MEDS: CEFEPIME 1 GM in IV NS 0.9% 50 ML IV SCH ×3 (04:09→21:41)
--- NOTE | 2017-09-30 04:30 | NUR ---
WET MACHINE CUTTER NOTES PT RECEIVED FROM [place], UPDATES RECEIVED. PT HAS BEEN BATHED, CLEAN.
[2017-09-30 05:20] LABS: CALCIUM, SERUM 7.8 mg/dL (8.5-10.1); CARBON DIOXIDE 23 mmol/L (21-32); CHLORIDE 115 mmol/L (98-107); CREATININE 0.7 mg/dL (0.6-1.3); GLUCOSE 157 mg/dL (74-106); POTASSIUM 4.1 mmol/L (3.5-5.1); SODIUM SERUM 146 mmol/L (136-145); UREA NITROGEN, BLOOD 38 mg/dL (7-18)
[2017-09-30 05:54] LABS: EOSINOPHILS % (AUTO) 0.3 % (0.0-6.0); HEMATOCRIT 25 % (33-45); HEMOGLOBIN 9.2 g/dL (11.5-14.8); LYMPHOCYTES # (AUTO) 0.5 /CMM (0.8-4.8); LYMPHOCYTES % (AUTO) 4.4 % (20.0-44.0); MEAN CORPUSCULAR HEMOGLOBIN 35 PG (26.0-33.0); MEAN CORPUSCULAR HGB CONC 36 g/dl (31.0-36.0); MEAN CORPUSCULAR VOLUME 97 fL (82-100); MONOCYTES % (AUTO) 0.3 % (2.0-12.0); NEUTROPHILS # (AUTO) 10.3 /CMM (1.8-8.9); PLATELET COUNT (AUTO) 68 /CMM (150-450); RDW COEFFICIENT OF VARIATION 18.4 (11.5-15.0); RED BLOOD CELL COUNT(AUTO) 2.59 MIL/uL (4.0-5.2); WHITE BLOOD COUNT (AUTO) 10.8 K/uL (4.3-11.0)
[2017-09-30 06:11] LABS: LYMPHOCYTES % (MANUAL) 5 % (16-48); NEUTROPHILS % (MANUAL) 95 (42-76)
--- NOTE | 2017-09-30 08:00 | NUR ---
ICU/RN INITIAL NOTES,AM RECEIVED REPORT FROM NIGHT NURSE. PT INTUBATED ETT 7.5, 24CM AT THE LIP, ON VENT SETTINGS ORDERED BY MD, NO DISTRESS HOWEVER, PT IS TACHYPNEIC. RIGHT IJ TLC, IV FLUIDS INFUSING 100 ML/HR. OG TUBE IN PLACE, PLACEMENT VERIFIED, TUBE FEEDING INFUSING PER ORDERS, TOLERATING WELL. PT ON TELE, SINUS TACKY. WOUNDS NOTED, WOUND CARE WILL BE RENDERED. ALL NEEDS WILL BE ATTENDED TO, SAFETY MEASURES TAKEN ,BED IN LOW POSITION, SIDE RIALS UP, CALL LIGHT WITHIN REACH, WILL CONTINUE CARE.
[2017-09-30 08:48] LABS: ABG BASE EXCESS -0.7 mmol/L; ABG PCO2 26.3 mmHg (35.0-45.0); ABG PH 7.512 (7.350-7.450); PEEP,BG 0 cm H2O; SITE, ABG Right Radial; VENT MODE, BG AC 16 450 30% +0; VT, ABG 450 mL
[2017-09-30] MEDS: Z GUARD REMEDY 2 OZ OINT TP SCH (09:00)
[2017-09-30] MEDS: DAKINS HALF STRENGTH (0.25%) 480 ML BOTTLE TOP SCH (09:00)
[2017-09-30] MEDS: METOPROLOL TARTRATE 25 MG TABLET PO SCH ×2 (09:01→21:41)
[2017-09-30] MEDS: DIGOXIN INJ 0.5 MG/2 ML AMPUL IV SCH (09:01)
--- NOTE | 2017-09-30 10:30 | NUR ---
ICU/RN: AND AT BEDSIDE. PT ASSESSED, NOT APPROPRIATE FOR WEANING AT THIS TIME. PT NON RESPONSIVE, DOES NOT FOLLOW COMMANDS. WILL CONTINUE TO MONITOR AND ASSESS.
[2017-09-30] MEDS: VANCOMYCIN 0.75 GM in IV D5W 250 ML IV SCH (11:50)
--- NOTE | 2017-09-30 14:34 | NUR ---
ICU/RN: PRN ATIVAN GIVEN. PT TACHYPNEIC, INCREASED WORK OF BREATHING NOTED, VSS, MAINTAINING 02 SAT. WILL CONTINUE TO MONITOR AND ASSESS
[2017-09-30] MEDS: LACTOBACILLUS RHAMNOSUS GG 1 EACH CAP.SPRINK PO SCH (17:42)
[2017-09-30] MEDS: LORAZEPAM INJ 2 MG/ML VIAL IV PRN (17:43)
--- NOTE | 2017-09-30 18:35 | NUR ---
ICU/RN ENDING NOTES,AM REPORT WILL BE ENDORSED TO NIGHT NURSE FOR CONTINUATION OF CARE. PT INTUBATED, ON VENT SETTINGS ORDERED BY MD. NO ACUTE DISTRESS NOTED AT THIS TIME. PT NON SEDATED, DOES NOT FOLLOW COMMANDS, LETHARGIC. IV FLUIDS INFUSING ORDERED. ON TELE, SINUS TACKY. PT BATHE, LINENS CHANGED, TURNED AND REPOSITIONED. ALL NEEDS ATTENDED TO, SAFETY MEASURES TAKEN, BED IN LOW POSITION, SIDE RAILS UP, CALL LIGHT WITHIN REACH. WILL CONTINUE CARE.
--- NOTE | 2017-09-30 20:00 | NUR ---
BILLING MANAGER RCD PT W/DX SEPSIS; PT IS OBTUNDED ONLY RESPONDS TO PAINFUL STIMULI. MAINTAIN OFF SEDATION IN ORDER TO ATTEMPT TO WEAN FROM VENT. AFIB ON MONITOR. INTUBATED 7.5 @ 24 W/VENT SETTINGS AC 16 450 30% +5; PT HAS LARGE AMOUNT OF THICK WHITE SECRETIONS; RENDERED ORAL CARE. MARTINEZ CATHETER WITH DARK YELLOW URINE NOTED. LEFT CALF WOUND WITH DRESSING C/D/I. OG TUBE WITH FIBERSOURCE AT 70 ML/HR; MIN RESIDUAL NOTED AT THIS TIME. RIJ TLC PATENT AND FLUSHING WELL WITH GOOD BLOOD RETURN; NS@100 ML/HR. HOB ELEVATED. CONTINUE TO MONITOR.
--- NOTE | 2017-09-30 22:00 | NUR ---
ASSOCIATE FIELD SERVICE ENGINEER ORAL CARE RENDERED; TURNED AND REPOSITIONED PT; OFFLOADED EXTREMITIES; FACIAL GRIMACING NOTED. CONTINUE TO MONITOR.
[2017-10-01] VITALS (25 sets, daily range): BP systolic 94–125; BP diastolic 49–77
[2017-10-01] MEDS: PANTOPRAZOLE 40 MG VIAL IV SCH
--- NOTE | 2017-10-01 | NUR ---
FIELD ARTILLERY SENIOR SERGEANTVANE WALKER TROUGH 18; ADMINISTER VANCO PER PROTOCOL.
[2017-10-01] MEDS: FIBERSOURCE HN 1,000 ML BOTTLE GT PRN (00:33)
[2017-10-01] MEDS: IV NS 0.9% 1,000 ML IV PRN (04:01)
[2017-10-01] MEDS: CEFEPIME 1 GM in IV NS 0.9% 50 ML IV SCH ×2 (04:01→13:17)
[2017-10-01 05:08] LABS: CALCIUM, SERUM 7.8 mg/dL (8.5-10.1); CARBON DIOXIDE 23 mmol/L (21-32); CHLORIDE 116 mmol/L (98-107); CREATININE 0.8 mg/dL (0.6-1.3); GLUCOSE 147 mg/dL (74-106); POTASSIUM 4.6 mmol/L (3.5-5.1); SODIUM SERUM 146 mmol/L (136-145); UREA NITROGEN, BLOOD 43 mg/dL (7-18)
--- NOTE | 2017-10-01 07:30 | NUR ---
RT PATIENT REC'D ORALLY INTUBATED ON [facility] VENT WITH SETTINGS SET BY . VENT ALARMS CHECKED + AUDIBLE. CUFF PRESSURE CHECKED DEMAND MANAGER. ETT SECURE AND IN PROPER POSITION. PATIENT AWAKE, NON RESPONSIVE TO VERBAL COMMANDS. SUCTIONED WITH SMALL AMT OF PALE SEMITHICK SECRETIONS. B/S OLIVIA. AMBU BAG AT HOB Addendum: 10/01/17 at 0935 by LACY MYERS RT Amended: Links added.
--- NOTE | 2017-10-01 08:00 | NUR ---
ICU/RN INITIAL NOTES,AM RECEIVED REPORT FROM NIGHT NURSE. PT INTUBATED ETT 7.5, 24CM AT THE LIP, ON VENT SETTINGS ORDERED BY MD, NO DISTRESS, PT IS TACHYPNEIC. RIGHT IJ TLC, IV FLUIDS INFUSING 100 ML/HR. OG TUBE IN PLACE, PLACEMENT VERIFIED, TUBE FEEDING INFUSING PER ORDERS, TOLERATING WELL 10ML RESIDUAL NOTED. PT ON TELE, A.FIB. WOUNDS NOTED, WOUND CARE WILL BE RENDERED. ALL NEEDS WILL BE ATTENDED TO, SAFETY MEASURES TAKEN ,BED IN LOW POSITION, SIDE RIALS UP, CALL LIGHT WITHIN REACH, WILL CONTINUE CARE.
[2017-10-01 08:17] LABS: ABG BASE EXCESS -2.2 mmol/L; ABG OXYGEN SATURATION 97.8 % (92.0-98.5); ABG PCO2 30.1 mmHg (35.0-45.0); ABG PH 7.463 (7.350-7.450); ABG PO2 105.3 mmHg (75.0-100.0); AaDO2 73.2 mmHg; COHb 3.3 % (0.5-1.5); MetHb 0.2 % (0.0-1.5); O2Hb 94.4 % (94.0-97.0); SITE, ABG Right Femoral
[2017-10-01] MEDS: Z GUARD REMEDY 2 OZ OINT TP SCH (08:18)
[2017-10-01] MEDS: DAKINS HALF STRENGTH (0.25%) 480 ML BOTTLE TOP SCH (08:18)
[2017-10-01] MEDS: LACTOBACILLUS RHAMNOSUS GG 1 EACH CAP.SPRINK PO SCH (08:21)
[2017-10-01] MEDS: METOPROLOL TARTRATE 25 MG TABLET PO SCH (08:21)
[2017-10-01] MEDS: DIGOXIN INJ 0.5 MG/2 ML AMPUL IV SCH (08:21)
--- NOTE | 2017-10-01 10:30 | NUR ---
ICU/RN: AT BEDSIDE. PT ASSESSED. DUE TO CONDITION,UNABLE TO WEAN. PER MD ORDERS PT WILL BE TRANSFERRED TO [facility] FOR CONTINUITY OF CARE. AWAITING ORDER AND PLACEMENT PER AIRPLANE TECHNICIAN. WILL FOLLOW THROUGH.
[2017-10-01] MEDS: VANCOMYCIN 0.75 GM in IV D5W 250 ML IV SCH ×3 (11:20)
[2017-10-01] MEDS: HYDROMORPHONE INJ 0.5 MG/0.5 ML SYRINGE IV PRN (15:06)
--- NOTE | 2017-10-01 16:25 | NUR ---
ICU/RN: REPORT CALLED TO VANE HAWK AT [facility]. AWAITING FOR AMBULANCE
--- NOTE | 2017-10-01 16:58 | NUR ---
ICU/RN: AMBULANCE AT BEDSIDE.REPORT ENDORSED TO RN WHO WILL BE TRANSFERRING PT. EXIT CARE DONE. WOUND PHOTOGRAPHS TAKEN AND PLACED IN CHART. ACUTE TO ACUTE TRANSFER FORMS FILLED OUT. REPORT ENDORSED TO KENN AT [facility]. WOUND CARE DONE. PER MD, PT WILL BE TRANSFERRING WITH [facility], AND [facility]. PT ON VENT SETTINGS, ETT 7.5/24CM AT THE LIP, VENT SETTINGS ORDERED. ALL NEEDS ATTENDED, PT CLEAN AND DRY. LINENS CHANGED.
== END 2017-10-01 17:21 | disposition short-term general hospital (02) | DRG 853 ==
LOC: ER 15:47 → TELE 23:10 → ICU 23:23
PROVIDERS: ADMIT Internal Medicine; ATTEND Internal Medicine
PROC: 5A1955Z Respiratory Ventilation, Greater than 96 Consecutive Hours (ICD-10-PCS; principal; 2017-09-24)
PROC: 06H03DZ Insertion of Intraluminal Device into Inferior Vena Cava, Percutaneous Approach (ICD-10-PCS; 2017-09-26)
PROC: 30233R1 Transfusion of Nonautologous Platelets into Peripheral Vein, Percutaneous Approach (ICD-10-PCS; 2017-09-26)
PROC: B5191ZZ Fluoroscopy of Inferior Vena Cava using Low Osmolar Contrast (ICD-10-PCS; 2017-09-26)
DX: A40.1 Sepsis due to streptococcus, group B (principal); N17.0 Acute kidney failure with tubular necrosis; J96.00 Acute respiratory failure, unspecified whether with hypoxia or hypercapnia; E43 Unspecified severe protein-calorie malnutrition; J18.9 Pneumonia, unspecified organism; R65.21 Severe sepsis with septic shock; G93.41 Metabolic encephalopathy; I82.432 Acute embolism and thrombosis of left popliteal vein; J90 Pleural effusion, not elsewhere classified; E87.2 Acidosis; N39.0 Urinary tract infection, site not specified; K92.2 Gastrointestinal hemorrhage, unspecified; D69.6 Thrombocytopenia, unspecified; L89.899 Pressure ulcer of other site, unspecified stage; I73.9 Peripheral vascular disease, unspecified; N18.9 Chronic kidney disease, unspecified; I12.9 Hypertensive chronic kidney disease with stage 1 through stage 4 chronic kidney disease, or unspecified chronic kidney disease; Z79.899 Other long term (current) drug therapy; I87.8 Other specified disorders of veins; Z79.01 Long term (current) use of anticoagulants; I35.0 Nonrheumatic aortic (valve) stenosis; I48.0 Paroxysmal atrial fibrillation; B96.20 Unspecified Escherichia coli [E. coli] as the cause of diseases classified elsewhere; L60.3 Nail dystrophy; K59.00 Constipation, unspecified; D64.9 Anemia, unspecified; I70.0 Atherosclerosis of aorta; E66.01 Morbid (severe) obesity due to excess calories; Z68.24 Body mass index [BMI] 24.0-24.9, adult
CPT/HCPCS: 31720; 36415; 36600; 70450-TC; 71045-TC; 74018; 80048-TC; 80053-TC; 80076-TC; 80202-TC; 81000-TC; 82803-TC; 83605-TC; 84134-TC; 84478-TC; 84484-TC; 85025-TC; 85610-TC; 85730-TC; 86850-TC; 87040-TC; 87081-TC; 87086-TC; 87186-TC; 93307-TC; 93922-TC; 93926-TC; 93971-TC; 94002-TC; 94003-TC; 94762-TC; 99082-TC; A4216; A4606; A6253; A6402; A6403; C1751; C9113; J0330; J0690; J0692; J1160; J1644; J1956; J2060; J2185; J2543; J3010; J3370; J3430; J3480; J3490; J7030; J7050; J7060; P9016-BL; P9034-BL; Q9967; Z7610